=== PATIENT | female | born 1995 | race Caucasian/White ===

== ENCOUNTER 2016-08-28 09:34 | Emergency (ER) | payer OTHER | END 2016-08-28 10:45 | disposition left against medical advice (07) | LOC: ER1 09:34 | DX: Z53.21 Procedure and treatment not carried out due to patient leaving prior to being seen by health care provider (principal) ==

== ENCOUNTER 2020-06-15 06:43 | Emergency (ER) | payer OTHER ==
[~2020-06-15 06:43] MED LIST: BENTYL 20MG TAB20 MG PO; CELEBREX200 MG PO; CYCLOBENZAPRINE5 MG PO; PAXIL40 MG PO; PHENERGAN 25 MG25 M1 PO; TRAMADOL HCL50 MG PO; ZOFRAN ODT 4 MG4 MG SL; ZOFRAN4 MG PO
[2020-06-15 07:10] LABS: HEMOGLOBIN 16.3 gm/dl (12.3-15.3); RED BLOOD COUNT 5.22 M/UL (4.00-5.10); WHITE BLOOD COUNT 8.6 K/UL (4.5-11.0)
[2020-06-15 07:32] LABS: BUN/CREATININE RATIO 10 (0-10)
[2020-06-15] MEDS ORDERED: FLAGYL500 MG PO (11:28)
[2020-06-15] MEDS ORDERED: CIPRO500 MG PO (11:28)
== END 2020-06-15 11:55 | disposition home or self-care (01) ==
LOC: ER1 06:43
PROVIDERS: Family Medicine
DX: R10.84 Generalized abdominal pain (principal); R19.7 Diarrhea, unspecified; R11.10 Vomiting, unspecified; Z87.19 Personal history of other diseases of the digestive system; Z90.49 Acquired absence of other specified parts of digestive tract
CPT/HCPCS: 36415; 80053; 81001; 83605; 83690; 84703; 85025; 87077; 87086; 87186; 96374; 96375; 99284; J2270; J2405; Q9967

== ENCOUNTER 2020-07-17 15:55 | Emergency (ER) | payer OTHER ==
[~2020-07-17 15:55] MED LIST changes: +CIPRO500 MG PO; +FLAGYL500 MG PO
== END 2020-07-17 16:51 | disposition home or self-care (01) ==
LOC: ER1 15:55
DX: S93.402A Sprain of unspecified ligament of left ankle, initial encounter (principal); X50.1XXA Overexertion from prolonged static or awkward postures, initial encounter; Y92.009 Unspecified place in unspecified non-institutional (private) residence as the place of occurrence of the external cause
CPT/HCPCS: 73610; 99283

== ENCOUNTER 2020-10-23 06:39 | Emergency (ER) | payer OTHER ==
[2020-10-23 07:52] LABS: HEMOGLOBIN 15.6 gm/dl (12.3-15.3); RED BLOOD COUNT 4.95 M/UL (4.00-5.10); WHITE BLOOD COUNT 6.2 K/UL (4.5-11.0)
[2020-10-23 08:13] LABS: BUN/CREATININE RATIO 15 (0-10)
[2020-10-23] MEDS ORDERED: ZOFRAN ODT 4 MG4 MG PO (10:22)
== END 2020-10-23 10:55 | disposition home or self-care (01) ==
LOC: ER1 06:39
PROVIDERS: Emergency Medicine
DX: K52.9 Noninfective gastroenteritis and colitis, unspecified (principal)
CPT/HCPCS: 71045; 80053; 84703; 85025; 96374; 99284; J2405; J7030; Q9967

== ENCOUNTER 2020-11-22 07:41 | Emergency (ER) | payer OTHER ==
[~2020-11-22 07:41] MED LIST changes: +ZOFRAN ODT 4 MG4 MG PO
[2020-11-22 08:42] LABS: HEMOGLOBIN 14.7 gm/dl (12.3-15.3); RED BLOOD COUNT 4.69 M/UL (4.00-5.10); WHITE BLOOD COUNT 7.6 K/UL (4.5-11.0)
[2020-11-22 09:15] LABS: BUN/CREATININE RATIO 15 (0-10)
[2020-11-22] MEDS ORDERED: BENTYL 20MG TAB20 MG PO (10:31)
[2020-11-22] MEDS ORDERED: ZOFRAN4 MG PO (10:31)
== END 2020-11-22 10:58 | disposition home or self-care (01) ==
LOC: ER1 07:41
PROVIDERS: Physician Assistant
DX: R10.13 Epigastric pain (principal); R10.9 Unspecified abdominal pain; R19.7 Diarrhea, unspecified; Z90.49 Acquired absence of other specified parts of digestive tract
CPT/HCPCS: 80053; 81001; 82150; 83690; 84703; 85025; 96374; 96375; 99284; C9113; J2405

== ENCOUNTER 2021-05-13 05:31 | Emergency (ER) | payer OTHER ==
[2021-05-13 08:45] LABS: HEMOGLOBIN 15.3 gm/dl (12.3-15.3); RED BLOOD COUNT 4.89 M/UL (4.00-5.10); WHITE BLOOD COUNT 7.9 K/UL (4.5-11.0)
[2021-05-13 09:00] LABS: BUN/CREATININE RATIO 9 (0-10)
[2021-05-13] MEDS ORDERED: ZOFRAN4 MG PO (11:43)
== END 2021-05-13 11:56 | disposition home or self-care (01) ==
LOC: ER1 05:31
PROVIDERS: Emergency Medicine
DX: R10.9 Unspecified abdominal pain (principal); F32.A Depression, unspecified; F41.9 Anxiety disorder, unspecified; Z90.49 Acquired absence of other specified parts of digestive tract; Z20.822 Contact with and (suspected) exposure to COVID-19; R10.816 Epigastric abdominal tenderness
CPT/HCPCS: 0240U; 80048; 81001; 83690; 84703; 85025; 87086; 96374; 99284; J2405; Q9967